=== PATIENT | female | born 1955 | race Caucasian/White ===

== ENCOUNTER 2019-06-09 08:11 | Day surgery (SDC) | payer MEDICARE, OTHER ==
[~2019-06-09] VITALS: Ht 1841.5 cm; Wt 63.5 kg
--- NOTE | ~2019-06-09 | OP ---
PATIENT NAME: RAYMOND ARAUJO MEDICAL RECORD: [id number] :51 [facility] DATE: SURGEON: HUMA DIETZ MD DATE OF OPERATION: 06/09/2019 PREOPERATIVE DIAGNOSIS: Far lateral disc herniation at L4-L5 on the right. POSTOPERATIVE DIAGNOSIS: Far lateral disc herniation at L5 on the right. PROCEDURE: Lumbar laminectomy, medial facetectomy, and foraminotomy with discectomy L4-L5 on the right with METRx retractor. DESCRIPTION AND TECHNIQUE: After induction of general endotracheal anesthesia, the patient was rolled prone on Tal frame. Lumbar spine was prepped and draped in usual sterile fashion. Fluoroscopic x-ray and spinal needle localized the L4-L5 interspace on the right side. A series of dilators were used to advance a METRx retractor at the L4-L5 interspace on the right. Level was confirmed with fluoroscopic x-ray. A microscope and Midas Tutu drill were used to perform laminotomy, medial facetectomy, and foraminotomy at L4-L5 on the right. Hypertrophied ligamentum flavum was removed with Cloward rongeurs. There was an obvious subligamentous free fragment disc herniation on the right at just below the L4 pedicle. This was removed with pituitary rongeurs. Following this, the L4 nerve root was decompressed well. Meticulous hemostasis was maintained throughout the wound. The wound was irrigated with copious amounts of Ancef irrigant solution. The fascia was closed with 2-0 Vicryl suture, the subdermal layer was closed with 3-0 Vicryl suture. The skin was closed with Steri-Strips and benzoin. A sterile dressing was applied to the wound. The patient was awakened in good condition and taken to recovery. All counts were reported as correct. Estimated blood loss was minimal. TRANSINT:[id number] Voice Confirmation ID: [id number] DOCUMENT ID: [id number] HUMA DIETZ MD CC: [id number] DICTATION DATE: 06/09/19 1447 W[employer] AND GREASER: 06/10/19 0009 [facility] 06/09/19 [facility] [address] [id number]
[~2019-06-09 08:11] MED LIST: BENADRYL25 MG PO; BI-EST PO; DHEA PO; KRILL OIL PO; NEURIVA PO; NEURONTIN600 MG PO; OMEGA PO; PRAVACHOL40 MG PO; PRILOSEC PO; PRINIVIL20 MG PO; PROGESTERONE PO; VOLTAREN75 MG PO; ZANAFLEX4 MG PO; [UNRECOGNIZED DRUG - OTHER] PO
[2019-06-09 08:38] LABS: HEMATOCRIT 42.3 % (36.0-48.0); HEMOGLOBIN 13.9 g/dL (12-16); MCH 30.1 pg (26.0-34.0); MCHC 32.9 g/dL (31.0-37.0); MCV 91.6 fL (80.0-100.0); MEAN PLATELET VOLUME 12.4 fL (7.4-10.4); RBC 4.62 10x6/uL (4.00-5.40); RDW 13.9 % (11.5-14.5); WBC 4.9 10x3/uL (4.8-10.8)
[2019-06-09 09:25] VITALS: BP 112/82; Ht 1841.5 cm; Wt 63.5 kg
[2019-06-09] MEDS ORDERED: ULTRAM50 MG PO (11:47)
--- NOTE | 2019-06-09 15:41 | NUR ---
1310-PT AMBULATED TO RESTROOM WITH SLOW STEADY GAIT. ABLE TO URINATED WITHOUT COMPLICATIONS. UPON AMBULATING BACK TO BED REPORTS SHARP PAIN IN MID BACK OF INCISION RADIATING SHARPLY DOWN LEFT MID THIGH AREA. CONTACTED VIA PHONE. ORDERS FOR PT TO LIE BACK DOWN FOR 30 MIN AND ATTEMPT TO AMBULATE AGAIN. PAIN SHOULDN'T BE RELATED.
--- NOTE | 2019-06-09 15:44 | NUR ---
1405-PT ABLE TO AMBULATE WITH SLOW STEADY GAIT WITHOUT SHARP PAIN REPORTED BEFORE. DISCHARGE CRITERIA MET. REVIEWED POST OPERATIVE INSTRUCTIONS WITH PT WITH DAUGHTER AT BEDSIDE.VERBALIZED UNDERSTANDING. ESCORTED OUT VIA W/C WITH SON AWAITING TO DRIVE HOME. STABLE CONDITION
== END 2019-06-09 14:05 | disposition home or self-care (01) ==
LOC: D.OPS 08:11 → D.PAN 10:00 → D.OPS 10:05 → D.PAN 10:05 → D.OPS 12:00
PROVIDERS: Anesthesiology; ATTEND Neurological Surgery
DX: M51.26 Other intervertebral disc displacement, lumbar region (principal)

== ENCOUNTER 2019-07-07 05:21 | Day surgery (SDC) | payer MEDICARE, OTHER ==
[~2019-07-07] VITALS: Ht 167.6 cm; Wt 68.0 kg
[~2019-07-07 05:21] MED LIST changes: +NEXIUM40 MG PO; +ULTRAM50 MG PO; +ZYRTEC10 MG PO
[2019-07-07 05:50] LABS: BASOPHILS 0.8 % (0-2); HEMATOCRIT 38.7 % (36.0-48.0); HEMOGLOBIN 12.2 g/dL (12-16); IMMATURE GRANULOCYTES 0.3 % (0-5); LYMPHOCYTES 44.4 % (15-50); MCH 29.8 pg (26.0-34.0); MCHC 31.5 g/dL (31.0-37.0); MCV 94.4 fL (80.0-100.0); MEAN PLATELET VOLUME 12.7 fL (7.4-10.4); MONOCYTES 8.3 % (2-11); NEUTROPHILS 43.2 % (40-80); PLATELET COUNT 137 10x3/uL (130-400); RDW 14.2 % (11.5-14.5)
[2019-07-07 06:13] VITALS: BP 146/74; Ht 167.6 cm; Wt 68.0 kg
[2019-07-07 06:23] LABS: ANION GAP 10.7 mmol/L (8-16); CARBON DIOXIDE 28.3 mmol/L (21.0-32.0)
[2019-07-07] MEDS ORDERED: ULTRAM50 MG PO (08:38)
--- NOTE | 2019-07-25 14:22 | OP ---
PATIENT NAME: RAYMOND ARAUJO MEDICAL RECORD: [id number] :51 LOCATION:[facility] ADMISSION DATE: SURGEON: ANKUSH PATRICK MD DATE OF OPERATION: 07/07/2019 PREOPERATIVE DIAGNOSES: 1. Gallstones. 2. Hypertension. POSTOPERATIVE DIAGNOSES: 1. Gallstones. 2. Hypertension. PROCEDURE: Laparoscopic cholecystectomy. SURGEON: Ankush Patrick MD REPORT OF PROCEDURE: The patient's abdomen was prepped and draped in sterile fashion. A cutdown was made on the superior aspect of the umbilicus, 0 Vicryls were placed in the fascia bilaterally and the fascia was incised with 15-blade. I then bluntly entered the peritoneal cavity and placed a 12-mm Josias port. Under direct visualization, a 5-mm trocar was placed in the epigastrium and 2 more 5-mm trocars were placed in the right subcostal region. The gallbladder was grasped and elevated. The cystic artery and cystic duct were dissected free and these were clipped proximally and distally and ligated in standard fashion. The gallbladder was then taken off the liver bed using electrocautery and placed into the right upper quadrant. Any bleeding from the liver bed was then treated with electrocautery. At this point, the ports and insufflation were then removed and the gallbladder was placed into an Endo Catch bag and removed through the umbilicus. The umbilical fascia was closed with interrupted 0 Vicryls times 3. The wounds were then irrigated out with normal saline and infused with 10 mL of 0.25% Marcaine with epinephrine. The skin incisions were all closed with subcutaneous 5-0 Monocryl and dressed appropriately. COMPLICATIONS: None. CONDITION: Stable. ANESTHESIA: General endotracheal and local. BLOOD LOSS: Minimal. TRANSINT:[id number] Voice Confirmation ID: [id number] DOCUMENT ID: [id number] ANKUSH PATRICK MD at 1422 CC: ERNESTO SWIFT [id number] DICTATION DATE: 07/07/19830 [employer] DEVELOPER: 07/07/19849 [facility] 07/07/[id number] [place] [address]
== END 2019-07-07 10:45 | disposition home or self-care (01) ==
LOC: D.OPS 05:21 → D.PAN 07:15 → D.OPS 10:45
PROVIDERS: ATTEND Surgery
DX: K80.80 Other cholelithiasis without obstruction (principal); I10 Essential (primary) hypertension

== ENCOUNTER 2020-11-20 06:10 | Day surgery (SDC) | payer MEDICARE, OTHER ==
[2020-11-15 11:51] LABS: BASOPHILS 0.5 % (0-2); EOSINOPHILS 1.4 % (0-7); HEMATOCRIT 47.9 % (36.0-48.0); HEMOGLOBIN 15.5 g/dL (12-16); IMMATURE GRANULOCYTES 0.5 % (0-5); LYMPHOCYTE ABS# 2.69 10x3/uL (1.18-3.74); LYMPHOCYTES 32.4 % (15-50); MCH 28.5 pg (26.0-34.0); MCHC 32.4 g/dL (31.0-37.0); MCV 88.2 fL (80.0-100.0); MEAN PLATELET VOLUME 12.8 fL (7.4-10.4); NEUTROPHIL ABS# 4.83 10x3/uL (1.56-6.13); NEUTROPHILS 58.2 % (40-80); RBC 5.43 10x6/uL (4.00-5.40); RDW 14.5 % (11.5-14.5); WBC 8.3 10x3/uL (4.8-10.8)
[2020-11-15 11:57] LABS: ANION GAP 9.6 mmol/L (8-16); CALCIUM 10.1 mg/dL (8.5-10.1); CARBON DIOXIDE 28.1 mmol/L (21.0-32.0); CREATININE - SERUM 1.2 mg/dL (0.6-1.3); POTASSIUM - SERUM 3.7 mmol/L (3.5-5.1)
[2020-11-15 12:28] LABS: PLATELET COUNT 179 10x3/uL (130-400)
[~2020-11-20] VITALS: Ht 167.6 cm; Wt 66.8 kg
[~2020-11-20 06:10] MED LIST changes: +BENADRYL50 MG PO; +OMEPRAZOLE20 M1 PO
[2020-11-20] MEDS ORDERED: ASCORBIC ACID500 MG PO (06:30)
[2020-11-20 06:32] VITALS: BP 115/56; BMI 23.7
--- NOTE | 2020-11-20 10:45 | NUR ---
ARRIVES TO UNIT PER BED, NO DISTRESS NOTED, DENIES PAIN, IV PER RAC, DRESSING TO LOWER BACK CLEAN AND DRY, ABLE TO WIGGLE TOES, TOES WARM TO TOUCH
[2020-11-20] MEDS ORDERED: HYDROCODON-ACE1 EA10 PO (10:59)
[2020-11-20] MEDS ORDERED: MEDROL DOSE PACK4 MG PO (11:00)
[2020-11-20 11:14] VITALS: Ht 167.6 cm; Wt 66.8 kg
--- NOTE | 2020-11-20 12:57 | NUR ---
PT UP TO VOID, AWAITING TO HEAR FROM DR DIETZ ABOUT FOLLOW UP FOR PT
--- NOTE | 2020-11-20 13:25 | NUR ---
UNABLE TO REACH PACE TO CLARIFY ORDERS, PT WANTS TO SPEAK WITH DR BEFORE SHE LEAVES, REMOVED IV AND REINFORCED DSG TO BACK, CALLED CLINIC FOR ALTERNATE NUMBER TO REACH DR, MESSAGE LEFT WITH NURSE
--- NOTE | 2020-11-20 14:15 | NUR ---
DR DIETZ HERE TO TALK WITH PT, ORDERED PAIN MED FOR TRANSPORT
--- NOTE | 2020-11-20 14:47 | NUR ---
TAKEN TO PRIVATE VEHICLE FOR TRANSPORT HOME
--- NOTE | 2020-11-21 08:56 | OP ---
PATIENT NAME: RAYMOND ARAUJO MEDICAL RECORD: [id number] :51 LOCATION:[facility] ADMISSION DATE: SURGEON: HUMA DIETZ MD DATE OF OPERATION: 11/20/2020 PREOPERATIVE DIAGNOSES: Lumbar spinal stenosis and foraminal stenosis, left L3-L4 and L4-L5 with a right L3-L4 and L4-L5 foraminal stenosis. PROCEDURES: Left lumbar laminotomy, medial facetectomy and foraminotomy L3-L4 and L4-L5 left with sublaminar decompression L4-L5 and L3-L4 right METRx retractor. DESCRIPTION OF PROCEDURE: After induction of general endotracheal anesthesia, the patient was rolled prone on the Tal frame. Lumbar spine was prepped and draped in the usual sterile fashion. Fluoroscopic x-ray and spinal needle localized the L3-L4 interspace on the left side. A stab incision was created with a #11 blade series. After infiltration of 1:100,000 epinephrine with 1% lidocaine, the level was confirmed with fluoroscopic x-ray. A microscope and Midas Tutu drill was used to perform a laminotomy, medial facetectomy and foraminotomy L3-L4 and L4-L5 on the left. The spinous processes at L3 and L4 were undermined with the Midas Tutu drill. The retractor was tilted to the opposite side. Hypertrophied ligamentum flavum was removed from the sublaminar space and the foramina at L3-L4 and L4-L5 on the right as well. Following this, the dura was decompressed well centrally as well as nerve roots at L3, L4 and L5 on both sides. Meticulous hemostasis was maintained throughout the wound. Wound was irrigated with copious amounts of Ancef irrigant solution. The retractor was removed. The fascia was closed with 2-0 Vicryl suture. Subdermal layer was closed with 3-0 Vicryl suture. The skin was closed with raymundo. A sterile dressing was applied to the wound. The patient was awakened in good condition and taken to recovery. All counts were reported as correct. ESTIMATED BLOOD LOSS: Minimal. TRANSINT:[id number] Voice Confirmation ID: [id number] DOCUMENT ID: [id number] HUMA DIETZ MD at 0856 CC: [id number] DICTATION DATE: 11/20/20 1106 FANCY NEEDLEWORKER: 11/20/20 2018 [facility] 11/20/20 [facility] [address] [id number]
== END 2020-11-20 14:45 | disposition home or self-care (01) ==
LOC: D.OPS 06:10 → D.M3 10:54 → D.SDCHOLD 14:14 → D.M3 14:17 → D.OPS 14:45
PROVIDERS: Anesthesiology; ATTEND Neurological Surgery
DX: M48.061 Spinal stenosis, lumbar region without neurogenic claudication (principal); M54.16 Radiculopathy, lumbar region; M54.5 Low back pain; E78.5 Hyperlipidemia, unspecified; I10 Essential (primary) hypertension; K21.9 Gastro-esophageal reflux disease without esophagitis